=== PATIENT | male | born 2000 | race Caucasian/White ===

== ENCOUNTER → 2018-08-30 | Day surgery (SDC) | payer OTHER ==
[2018-08-29 13:43] LABS: BASOPHILS % 0.2 % (0.0-1.0); EOSINOPHILS # (AUTO) 0.1 (0.0-0.4); EOSINOPHILS % 1.6 % (0.0-6.0); HEMATOCRIT 47.3 % (38.2-49.6); HEMOGLOBIN 15.4 g/dL (14.0-18.0); LYMPHOCYTES # (AUTO) 1.3 (1.0-3.2); LYMPHOCYTES % 21.2 % (18.0-39.1); MEAN CORPUSCULAR HEMOGLOBIN 28.9 pg (28-32); MEAN CORPUSCULAR HGB CONC 32.6 g/dL (31-35); MEAN CORPUSCULAR VOLUME 88.9 fL (81-99); MONOCYTES # (AUTO) 0.5 (0.2-0.8); MONOCYTES % 8.3 % (4.4-11.3); NEUTROPHILS # (AUTO) 4.2 (2.1-6.9); NEUTROPHILS % 68.4 % (38.7-80.0); PLATELET COUNT 234 x10e3/uL (140-360); RED BLOOD COUNT 5.32 x10e6/uL (4.3-5.7); RED CELL DISTRIBUTION WIDTH 12.9 % (11.7-14.4)
--- NOTE | 2018-08-29 13:52 | Diagnostic Imaging Report ---
EXAMINATION: PA and lateral views of the chest. COMPARISON: None CLINICAL HISTORY: Preoperative study for foot surgery DISCUSSION: Lines/tubes: None. Lungs: The lungs are well inflated and clear. There is no evidence of pneumonia or pulmonary edema. Pleura: There is no pleural effusion or pneumothorax. Heart and mediastinum: The cardiomediastinal silhouette is normal. Bones and soft tissues: No acute bony abnormalities. Degenerative changes in the thoracic spine IMPRESSION: No acute cardiopulmonary abnormalities. Signed by: Dr. Ralph Sullivan M.D. on 08/29/2018 1:49 PM
[~2018-08-30] MED LIST: BUPIVACAINE HCL 0.5% INJ 30 ML VIAL INJ ONE; CEFAZOLIN SOD 1 GM VIAL ONE; CEFAZOLIN SOD 1 GM/NS 50ML 50 ML IV ONE; DEXAMETHASONE SOD PHOS INJ 4 MG/ML VIAL ONE; FENTANYL CITRATE/PF 100MCG/2 ML INJ ONE; KETOROLAC TROMETHAMINE 30 MG/ML VIAL ONE; MIDAZOLAM HCL 2 MG/2 ML VIAL ONE; ONDANSETRON HCL INJ 2MG/ML 2ML 2 MG/ML VIAL ONE; PROPOFOL IV EMULSION 10 MG/ML 20 ML VIAL ONE; SEVOFLURANE INHAL SOLN 250 ML PEN BTL ONE; TYLENOL WITH C1 EACH PO
--- OUTSIDE RECORDS SUMMARY | 2018-08-30 05:30 | XMS REPORT ---
Author Author [facility] Address Unknown Phone Unavailable Care Team Providers Care General Scrap Worker Name Role Phone Ela RAMOS Unavailable Unavailable Problems This patient has no known problems. Allergies, Adverse Reactions, Alerts This patient has no known allergies or adverse reactions. Medications This patient has no known medications. Results Test Description Test Time Test Comments Text Results Atomic Results Result Comments CHEST 2 VIEWS 2018-08-29 13:45:00 [facility] [address] [place] [address] Patient Name: CHARLES RENTERIA MR #: [id number] : 2000 Age/Sex: 18/M Req #: [id number] Adm Physician: Ordered by: ASHLIE RAMOS DPM Report #: [id number] Location: OR Room/Bed: Procedure: [id number] DX/CHEST 2 VIEWS Exam Date: 08/29/18 Exam Time: 1320 REPORT STATUS: Signed EXAMINATION: PA and lateral views of the chest. COMPARISON: None CLINICAL HISTORY: Preoperative study for foot surgery DISCUSSION: Lines/tubes: None. Lungs: The lungs are well inflated and clear. There is no evidence of pneumonia or pulmonary edema. Pleura: There is no pleural effusion or pneumothorax. Heart and mediastinum: The cardiomediastinal silhouette is normal. Bones and soft tissues: No acute bony abnormalities. Degenerative changes in the thoracic spine IMPRESSION: No acute cardiopulmonary abnormalities. Signed by: Dr. Sam Iglesias M.D. on 08/29/2018 1:49 PM Dictated By: SAM IGLESIAS MD 134 Transcribed By: SANA on 08/29/18 1346 COPY TO: ASHLIE RAMOS DPM
[2018-08-30 09:25] VITALS: BP 135/77
--- NOTE | 2018-08-30 18:00 | Operative Report ---
DATE OF PROCEDURE: 08/30/2018 SURGEON: Yvette Arreola DPM PREOPERATIVE DIAGNOSIS: Right 5th metatarsal base fracture. POSTOPERATIVE DIAGNOSIS: Right 5th metatarsal base fracture. PLANNED PROCEDURE: Right 5th metatarsal ORIF. ANESTHESIA: General with a postoperative block consisting of 20 mL of 0.5% Marcaine plain. HEMOSTASIS: Pneumatic thigh tourniquet set at 350 mmHg for a total time of approximately 30 minutes. MATERIALS: One [employer] 5th metatarsal hook plate, 4 screws combination locking and nonlocking 2.4 mm x 16 mm to 12 mm. A 3-0 Vicryl, 4-0 Prolene. ESTIMATED BLOOD LOSS: Less than 10 mL. PATHOLOGY: None. PROCEDURE NOTE: The patient was seen in the preoperative waiting room, where the correct procedure and site was identified. The patient was brought to the operating room, placed on the operating table in the supine position. General anesthesia was initiated. At this time, a well-padded pneumatic tourniquet was placed about the patient's right thigh. The right foot, ankle, and leg were then scrubbed, prepped, and draped in the usual aseptic manner. The right foot, ankle, and leg were exsanguinated with an Esmarch bandage and the pneumatic thigh tourniquet was inflated to 350 mmHg for a total time of approximately 35 minutes. Attention was directed to the lateral aspect of the patient's 5th metatarsal base, where a 6 cm linear incision was made directly over the base of the 5th metatarsal extending to the midshaft of the 5th metatarsal. The dissection was carried down to the level of bone. All vital neurovascular structures were identified, retracted dorsally and plantarly and all bleeders were cauterized or ligated as deemed necessary. At this time, the fracture site was easily identified. It was noted to be slightly angulated and deviated laterally. Utilizing a dental pick and techniques of manipulation and distraction, it was reduced and per manufacture protocol, the 5th metatarsal hook plate was applied, tamped into place and temporarily fixated with a guidewire. X-rays show a good reduction of the fracture site. Next, per manufacture protocol, compression screw was placed in the compression slot followed by the remainder of the screws, 2.4 mm screws, combination locking and nonlocking somewhere between 12 and 16 mm. This was again confirmed via intraoperative fluoroscopy to be in the correct site and location. The wound was then flushed with copious amounts of sterile saline. Deep tissue was reapproximated with 3-0 Vicryl, subcutaneous tissue with 3-0 Vicryl, and the skin was closed using a running interlocking stitch of 4-0 Prolene. The incision site was then dressed with Kerlix, 4 inch Webril, followed by a 4 x 30 posterior splint, and 4 inch Brijesh wrap. The patient tolerated the procedure and anesthesia well. The patient was transferred to the postop recovery with vital signs stable and vascular status intact. The patient was monitored there for a short period of time before being sent home with the following written and oral instructions. 1. Keep the dressing clean, dry, and intact. 2. The patient is to remain nonweightbearing in a posterior splint. Avoid any ambulation until being seen in the office. 3. The patient was given office number and instructed to contact us if any problems should arise. ZAY Wong/ANASTASIA /[id number]
== END | disposition home or self-care (01) ==
LOC: OR 05:28
PROVIDERS: ATTEND Podiatrist Foot & Ankle Surgery
DX: S92.351A Displaced fracture of fifth metatarsal bone, right foot, initial encounter for closed fracture (principal); X58.XXXA Exposure to other specified factors, initial encounter; F32.9 Major depressive disorder, single episode, unspecified; Z88.8 Allergy status to other drugs, medicaments and biological substances
CPT/HCPCS: 28485; 36415; 71046; 85025; 93005; J0690 ×2; J1100; J1885; J2250; J2405; J2704